=== PATIENT | male | born 1990 | race Caucasian/White ===

== ENCOUNTER 2017-12-12 21:08 | Emergency (ER) | payer MEDICAID ==
[~2017-12-12] VITALS: Ht 188 cm; Wt 63.0 kg
[~2017-12-12 21:08] MED LIST: HYDR-565 PO; no home
[2017-12-12] MEDS ORDERED: HYDROcodone/acetaminophen 10/325mg tab PO ONE (22:55)
[2017-12-12] MEDS ORDERED: HYDR-569 PO (23:05)
[2017-12-12 23:08] VITALS: BP 132/77
== END 2017-12-13 00:18 | disposition home or self-care (01) ==
LOC: ER 21:09
DX: S52.591A Other fractures of lower end of right radius, initial encounter for closed fracture (principal); Z98.890 Other specified postprocedural states; Z88.8 Allergy status to other drugs, medicaments and biological substances; Z79.899 Other long term (current) drug therapy; W18.39XA Other fall on same level, initial encounter; Y93.51 Activity, roller skating (inline) and skateboarding; Y92.89 Other specified places as the place of occurrence of the external cause; Y99.8 Other external cause status
CPT/HCPCS: 29130; 73110; 99284